=== PATIENT | male | born 1980 | race Caucasian/White ===

== ENCOUNTER 2019-09-24 15:52 | Observation (INO) ==
[2019-09-24 17:44] LABS: Hematocrit 42.5 % (37.5-50.1); Hemoglobin 14.2 g/dL (12.9-16.9); Mean Corpuscular HGB Conc 33.4 g/dL (31.6-35.5); Mean Corpuscular Hemoglobin 29.4 pg (28.0-33.3); Mean Platelet Volume 9.4 fL (9.4-12.4); Platelet Count 292 K/mcL (140-400); Red Blood Count 4.83 M/mcL (4.19-5.50); Red Cell Distribution Width 13.2 % (11.5-14.5); White Blood Count 10.7 K/mcL (4.3-11.1)
[2019-09-24 18:02] LABS: Alanine Aminotransferase 28 Units/L (7-52); Albumin 4.2 g/dL (3.5-5.7); Albumin/Globulin Ratio 1.6 (1.1-2.2); Alkaline Phosphatase 64 Units/L (34-104); Aspartate Amino Transferase 23 Units/L (13-39); BUN/Creatinine Ratio 24 (6-26); Bilirubin,Direct 0.1 mg/dL (0.0-0.2); Bilirubin,Indirect 0.4 mg/dL (0.0-1.0); Bilirubin,Total 0.5 mg/dL (0.3-1.0); Blood Urea Nitrogen 17 mg/dL (6-20); Calcium 9.4 mg/dL (8.6-10.3); Carbon Dioxide 28 mEq/L (23-29); Chloride 99 mEq/L (98-107); Globulin 2.7 g/dL (2.4-3.5); Glucose 105 mg/dL (70-105); Osmolality,Calculated 282 (280-300); Potassium 3.6 mEq/L (3.5-5.1); Sodium 135 mEq/L (136-145); Total Protein 6.9 g/dL (6.4-8.9); eGFR For African Americans > 60 (> 60); eGFR For Non-African Americans > 60 (> 60)
[2019-09-24] MEDS ORDERED: *HR* Labetalol 20 MG/4 ML SYRINGE IVP PRN (18:56)
[2019-09-24] MEDS ORDERED: Ondansetron 4 MG/2 ML VIAL IVP ONE (18:56)
[2019-09-24] MEDS ORDERED: Acetaminophen IV 1,000 MG/100 ML INFUS..BTL ONE (19:05)
[2019-09-24] MEDS ORDERED: Famotidine 20 MG/2 ML VIAL ONE (19:06)
[2019-09-24] MEDS ORDERED: CefOXitin 1,000 MG VIAL ONE (19:09)
[2019-09-24] MEDS ORDERED: *HR* Succinylcholine 200 MG/10 ML VIAL IVP ONE (19:20)
[2019-09-24] MEDS ORDERED: Lidocaine -MPF 2% 2 ML VIAL ONE (19:20)
[2019-09-24] MEDS ORDERED: *HR* Propofol 200 MG/20 ML VIAL IVP ONE (19:20)
[2019-09-24] MEDS ORDERED: Ondansetron 4 MG/2 ML VIAL ONE (19:20)
[2019-09-24] MEDS ORDERED: *HR* FentaNYL (PF) 100 MCG/2 ML VIAL ONE (19:20)
[2019-09-24] MEDS ORDERED: *HR* Rocuronium Bromide 50 MG/5 ML VIAL ONE (19:20)
[2019-09-24] MEDS ORDERED: *HR* Midazolam HCl 2 MG/2 ML VIAL ONE ×2 (19:20→19:53)
[2019-09-24] MEDS ORDERED: Dexamethasone 4 MG/ML VIAL ONE (19:22)
[2019-09-24] MEDS ORDERED: ceFAZolin 2,000 MG in 0.9 % Sodium Chloride 100 ML IVPB ONE (20:25)
[2019-09-24] MEDS ORDERED: *HR* PHENYLEPHRINE 1,000 MCG/10 ML SYRINGE IVP ONE (20:29)
[2019-09-24] MEDS ORDERED: EPHEDrine 50 MG/ML VIAL ONE (20:43)
[2019-09-24] MEDS ORDERED: Ondansetron 4 MG/2 ML VIAL IVP PRN (21:23)
[2019-09-24] MEDS ORDERED: *HR* Metoprolol 5 MG/5 ML VIAL IVP PRN (21:23)
[2019-09-24] MEDS ORDERED: *HR* HYDROMORPHONE 2 MG/ML VIAL ONE (21:30)
[2019-09-24] MEDS ORDERED: 0.9 % Sodium Chloride 1,000 ML IVC SCH (21:30)
[2019-09-24] MEDS: *HR* HYDROmorphone PF 0.5 MG/0.5 ML SYRINGE IVP PRN ×2 (21:39→21:54)
[2019-09-24] MEDS: *HR* OxyCODONE/APAP 5/325 TABLET PO PRN (23:53)
[2019-09-25] MEDS ORDERED: CeFAZolin Syr 3,000MG/30 ML 3,000 MG/30 ML SYRINGE IVPB SCH
[2019-09-25] MEDS ORDERED: Morphine Sulfate 2 MG/ML SYRINGE IVP PRN (02:54)
[2019-09-25] MEDS: ceFAZolin 3,000 MG in 0.9 % Sodium Chloride 100 ML IVP SCH ×2 (04:33→13:29)
[2019-09-25] MEDS: *HR* OxyCODONE/APAP 5/325 TABLET PO PRN (08:08)
[2019-09-25] MEDS: Ibuprofen 800 MG TABLET PO SCH ×2 (10:41→18:03)
[2019-09-25] MEDS: *HR* Heparin 5,000 UNIT/ML VIAL SQ SCH ×2 (13:29→21:13)
[2019-09-25] MEDS: Lisinopril-HCTZ 20-12.5mg TABLET PO SCH (21:13)
[2019-09-26] MEDS: Ibuprofen 800 MG TABLET PO SCH ×2 (00:12→10:10)
[2019-09-26 05:00] VITALS: BP 113/78
[2019-09-26] MEDS: *HR* Heparin 5,000 UNIT/ML VIAL SQ SCH (06:03)
[2019-09-26] MEDS: *HR* OxyCODONE/APAP 5/325 TABLET PO PRN (06:03)
[2019-09-26] MEDS ORDERED: polyethylene glycoL 3350 17 GM POWD.PACK PO SCH (09:00)
[2019-09-26] MEDS: Lisinopril-HCTZ 20-12.5mg TABLET PO SCH (10:10)
== END 2019-09-26 13:15 | disposition home or self-care (01) ==
LOC: EMEROOARM 15:52 → 3ANU 15:52
PROVIDERS: ADMIT Surgery; ATTEND Surgery

== ENCOUNTER 2019-09-27 00:30 | Inpatient (IN) ==
[2019-09-27] MEDS ORDERED: Ondansetron 4 MG/2 ML VIAL IVP ONE (00:33)
[2019-09-27] MEDS ORDERED: Isovue-370 500 ML BOTTLE IVP ONE (00:35)
[2019-09-27] MEDS ORDERED: Morphine Sulfate 2 MG/ML SYRINGE IVP STA (00:36)
[2019-09-27] MEDS ORDERED: 0.9 % Sodium Chloride 1,000 ML IVC ONE (00:41)
[2019-09-27 01:24] LABS: Basophils % 0.2 %; Eosinophils % 0.2 %; Hematocrit 38.8 % (37.5-50.1); Hemoglobin 13.5 g/dL (12.9-16.9); Immature Granulocytes % 0.3 % (0-4); Lymphocytes # 1.2 K/mcL (0.6-4.6); Lymphocytes % 10.9 %; Mean Corpuscular HGB Conc 34.8 g/dL (31.6-35.5); Mean Corpuscular Hemoglobin 30.3 pg (28.0-33.3); Mean Corpuscular Volume 87.2 fL (83.0-100.0); Mean Platelet Volume 9.2 fL (9.4-12.4); Monocytes # 0.9 K/mcL (0.0-1.3); Neutrophils # 8.8 K/mcL (1.6-8.9); Platelet Count 301 K/mcL (140-400); Red Blood Count 4.45 M/mcL (4.19-5.50); Red Cell Distribution Width 13.4 % (11.5-14.5); Segmented Neutrophils % 80.4 %; White Blood Count 10.9 K/mcL (4.3-11.1)
[2019-09-27 01:44] LABS: Alanine Aminotransferase 20 Units/L (7-52); Albumin/Globulin Ratio 1.4 (1.1-2.2); Alkaline Phosphatase 59 Units/L (34-104); Aspartate Amino Transferase 21 Units/L (13-39); BUN/Creatinine Ratio 25 (6-26); Bilirubin,Direct 0.1 mg/dL (0.0-0.2); Bilirubin,Indirect 0.6 mg/dL (0.0-1.0); Bilirubin,Total 0.7 mg/dL (0.3-1.0); Blood Urea Nitrogen 17 mg/dL (6-20); Calcium 8.9 mg/dL (8.6-10.3); Carbon Dioxide 25 mEq/L (23-29); Chloride 100 mEq/L (98-107); Globulin 2.9 g/dL (2.4-3.5); Glucose 134 mg/dL (70-105); Lipase 3 Units/L (11-82); Osmolality,Calculated 286 (280-300); Potassium 3.2 mEq/L (3.5-5.1); Sodium 136 mEq/L (136-145); Total Protein 6.9 g/dL (6.4-8.9); Troponin I < 0.03 ng/mL (< 0.04); eGFR For African Americans > 60 (> 60); eGFR For Non-African Americans > 60 (> 60)
[2019-09-27] MEDS ORDERED: Tetracaine/Benzocaine/Butamben 1 SPRAY AEROSOL MM ONE (02:11)
[2019-09-27] MEDS ORDERED: Tetracaine/Benzocaine/Butamben 1 SPRAY AEROSOL ONE (02:12)
[2019-09-27] MEDS ORDERED: 0.9 % Sodium Chloride 1,000 ML IVC SCH (04:15)
[2019-09-27] MEDS ORDERED: Metoclopramide 10 MG/2 ML VIAL IVP STA (04:20)
[2019-09-27] MEDS ORDERED: Metoclopramide 10 MG/2 ML VIAL IVP ONE (06:09)
[2019-09-27] MEDS ORDERED: Morphine Sulfate 2 MG/ML SYRINGE IVP ONE (06:10)
[2019-09-27] MEDS ORDERED: Ondansetron 4 MG/2 ML VIAL IVP PRN (07:26)
[2019-09-27] MEDS ORDERED: Naloxone 0.4 MG/ML INJ IVP PRN (07:26)
[2019-09-27] MEDS ORDERED: Ketorolac 15 MG/ML VIAL IVP PRN (07:36)
[2019-09-27] MEDS: Ringers Solution, Lactated 1,000 ML IVC SCH ×2 (09:15→17:06)
[2019-09-27] MEDS: Pantoprazole 40 MG VIAL IVP SCH (10:21)
[2019-09-27] MEDS: *HR* Heparin 5,000 UNIT/ML VIAL SQ SCH (17:00)
[2019-09-28] MEDS: *HR* Heparin 5,000 UNIT/ML VIAL SQ SCH (05:33)
[2019-09-28] MEDS: Pantoprazole 40 MG VIAL IVP SCH (07:50)
[2019-09-28 08:27] LABS: Basophils % 0.3 %; Eosinophils # 0.1 K/mcL (0.0-0.6); Eosinophils % 1.3 %; Hematocrit 38.2 % (37.5-50.1); Hemoglobin 12.5 g/dL (12.9-16.9); Immature Granulocytes % 0.3 % (0-4); Lymphocytes # 1.2 K/mcL (0.6-4.6); Lymphocytes % 20.5 %; Mean Corpuscular HGB Conc 32.7 g/dL (31.6-35.5); Mean Corpuscular Hemoglobin 29.2 pg (28.0-33.3); Mean Corpuscular Volume 89.3 fL (83.0-100.0); Mean Platelet Volume 9.3 fL (9.4-12.4); Monocytes # 0.7 K/mcL (0.0-1.3); Monocytes % 10.8 %; Platelet Count 278 K/mcL (140-400); Red Blood Count 4.28 M/mcL (4.19-5.50); Red Cell Distribution Width 13.2 % (11.5-14.5); Segmented Neutrophils % 66.8 %
[2019-09-28 08:45] LABS: BUN/Creatinine Ratio 25 (6-26); Blood Urea Nitrogen 18 mg/dL (6-20); Carbon Dioxide 25 mEq/L (23-29); Chloride 103 mEq/L (98-107); Glucose 95 mg/dL (70-105); Magnesium 2.1 mg/dL (1.6-2.6); Osmolality,Calculated 284 (280-300); Potassium 3.5 mEq/L (3.5-5.1); Sodium 136 mEq/L (136-145); eGFR For African Americans > 60 (> 60); eGFR For Non-African Americans > 60 (> 60)
[2019-09-28] MEDS ORDERED: Lisinopril-HCTZ 20-12.5mg TABLET PO SCH (09:00)
[2019-09-28 10:17] VITALS: BP 108/70
== END 2019-09-28 13:02 | disposition home or self-care (01) | DRG 392 ==
LOC: EMEROOARM 00:30 → 3ANU 00:30 → SUATTDRO 11:30
PROVIDERS: ADMIT Family Medicine; ATTEND Internal Medicine

== ENCOUNTER 2020-03-11 04:40 | Inpatient (IN) ==
[2020-03-11] MEDS ORDERED: Ketorolac 15 MG/ML VIAL IVP ONE (05:01)
[2020-03-11] MEDS ORDERED: 0.9 % Sodium Chloride 1,000 ML IVC ONE (05:01)
[2020-03-11 05:37] LABS: Basophils # 0.1 K/mcL (0.0-0.2); Basophils % 0.4 %; Eosinophils # 0.9 K/mcL (0.0-0.6); Eosinophils % 7.8 %; Hematocrit 39.1 % (37.5-50.1); Hemoglobin 12.8 g/dL (12.9-16.9); Immature Granulocytes % 0.4 % (0-4); Lymphocytes # 1.8 K/mcL (0.6-4.6); Lymphocytes % 15.8 %; Mean Corpuscular HGB Conc 32.7 g/dL (31.6-35.5); Mean Corpuscular Hemoglobin 28.7 pg (28.0-33.3); Mean Corpuscular Volume 87.7 fL (83.0-100.0); Mean Platelet Volume 9.7 fL (9.4-12.4); Monocytes % 8.5 %; Neutrophils # 7.6 K/mcL (1.6-8.9); Platelet Count 281 K/mcL (140-400); Red Blood Count 4.46 M/mcL (4.19-5.50); Red Cell Distribution Width 14.9 % (11.5-14.5); Segmented Neutrophils % 67.1 %; White Blood Count 11.3 K/mcL (4.3-11.1)
[2020-03-11 06:15] LABS: BUN/Creatinine Ratio 25 (6-26); Blood Urea Nitrogen 21 mg/dL (6-20); Calcium 8.8 mg/dL (8.6-10.3); Carbon Dioxide 27 mEq/L (23-29); Chloride 101 mEq/L (98-107); Glucose 130 mg/dL (70-105); Osmolality,Calculated 287 (280-300); Potassium 3.4 mEq/L (3.5-5.1); Sodium 136 mEq/L (136-145); Troponin I 4.44 ng/mL (< 0.04); eGFR For African Americans > 60 (> 60); eGFR For Non-African Americans > 60 (> 60)
[2020-03-11] MEDS ORDERED: *HR* Heparin 5,000 UNIT/ML VIAL IVP ONE (06:43)
[2020-03-11] MEDS ORDERED: *HR* Heparin 5,000 UNIT/ML VIAL IVP PRN ×2 (06:43)
[2020-03-11] MEDS ORDERED: Heparin 25,000UNIT/250ML 1/2NS 25,000 UNIT/250 ML IV.SOLN IVC SCH (06:45)
[2020-03-11] MEDS ORDERED: Perflutren Lipid Microsphere 1.3 ML in 0.9 % Sodium Chloride 8.7 ML IVP PRN (07:18)
[2020-03-11] MEDS ORDERED: Ondansetron 4 MG/2 ML VIAL IVP PRN (07:19)
[2020-03-11] MEDS ORDERED: Acetaminophen 325 MG TABLET PO PRN (07:19)
[2020-03-11 07:31] LABS: Hematocrit 38.8 % (37.5-50.1); Hemoglobin 12.6 g/dL (12.9-16.9); Mean Corpuscular HGB Conc 32.5 g/dL (31.6-35.5); Mean Corpuscular Hemoglobin 27.8 pg (28.0-33.3); Mean Corpuscular Volume 85.7 fL (83.0-100.0); Mean Platelet Volume 9.6 fL (9.4-12.4); Platelet Count 253 K/mcL (140-400); Red Blood Count 4.53 M/mcL (4.19-5.50); Red Cell Distribution Width 14.9 % (11.5-14.5); White Blood Count 12.4 K/mcL (4.3-11.1)
[2020-03-11 07:38] LABS: Heparin anti-factor XA UFH < 0.04 IU/mL (0.30-0.70)
[2020-03-11 07:39] LABS: INR 1.2; Prothrombin Time 13.7 Seconds (9.4-12.1)
[2020-03-11] MEDS ORDERED: Aspirin 325 MG TABLET PO ONE (07:48)
[2020-03-11 08:43] LABS: Estimated Average Glucose 123 mg/dl
[2020-03-11] MEDS ORDERED: ISOVUE-370 200 ML INFUS..BTL ONE (12:28)
[2020-03-11] MEDS ORDERED: Heparin 1,000 UNITS/500 mL 500 ML ONE (12:28)
[2020-03-11] MEDS ORDERED: 0.9 % Sodium Chloride 1,000 ML ONE ×2 (12:28→12:52)
[2020-03-11] MEDS ORDERED: Nitroglycerin 1,000 MCG/10 ML VIAL IV ONE (12:28)
[2020-03-11] MEDS ORDERED: *HR* Heparin 10,000 UNIT/10 ML VIAL ONE (12:28)
[2020-03-11] MEDS ORDERED: *HR* FentaNYL (PF) 100 MCG/2 ML VIAL ONE (12:45)
[2020-03-11] MEDS ORDERED: *HR* Midazolam HCl 2 MG/2 ML VIAL ONE (12:45)
[2020-03-11] MEDS: Ibuprofen 400 MG TABLET PO PRN (14:39)
[2020-03-11] MEDS ORDERED: Lisinopril-HCTZ 20-12.5mg TABLET PO SCH (21:00)
[2020-03-11 22:17] LABS: Adenovirus Not Detected (Not Detect); Bordetella Pertussis Not Detected (Not Detect); Chlamydophila pneumoniae Not Detected (Not Detect); Coronavirus 229E Not Detected (Not Detect); Coronavirus HKU1 Not Detected (Not Detect); Coronavirus NL63 Not Detected (Not Detect); Coronavirus OC43 Not Detected (Not Detect); Human Metapneumovirus Not Detected (Not Detect); Human Rhinovirus/Enterovirus Not Detected (Not Detect); Influenza A Subtype 2009 H1 Not Detected (Not Detect); Influenza B Not Detected (Not Detect); Mycoplasma pneumoniae Not Detected (Not Detect); Parainfluenza Virus 1 Not Detected (Not Detect); Parainfluenza Virus 2 Not Detected (Not Detect); Parainfluenza Virus 3 Not Detected (Not Detect); Parainfluenza Virus 4 Not Detected (Not Detect); Respiratory Syncytial Virus Not Detected (Not Detect)
[2020-03-12] MEDS ORDERED: Isovue-370 500 ML BOTTLE IVP ONE ×2 (05:00→07:00)
[2020-03-12] MEDS: Ibuprofen 400 MG TABLET PO PRN (05:05)
[2020-03-12 05:23] LABS: Hematocrit 36.3 % (37.5-50.1); Hemoglobin 11.5 g/dL (12.9-16.9); Mean Corpuscular HGB Conc 31.7 g/dL (31.6-35.5); Mean Corpuscular Hemoglobin 27.5 pg (28.0-33.3); Mean Corpuscular Volume 86.8 fL (83.0-100.0); Mean Platelet Volume 9.3 fL (9.4-12.4); Platelet Count 267 K/mcL (140-400); Red Blood Count 4.18 M/mcL (4.19-5.50); White Blood Count 8.9 K/mcL (4.3-11.1)
[2020-03-12 05:54] LABS: BUN/Creatinine Ratio 24 (6-26); Blood Urea Nitrogen 15 mg/dL (6-20); Carbon Dioxide 22 mEq/L (23-29); Chloride 101 mEq/L (98-107); Chol/HDL Ratio 5.1 (0-4.9); Cholesterol 132 mg/dL (< 200); Glucose 120 mg/dL (70-105); HDL Cholesterol 26 mg/dL (40-59); LDL Cholesterol,Calculated 81 mg/dL (< 100); Osmolality,Calculated 290 (280-300); Potassium 3.6 mEq/L (3.5-5.1); Sodium 139 mEq/L (136-145); Triglycerides 126 mg/dL (< 150); Troponin I 2.31 ng/mL (< 0.04); eGFR For African Americans > 60 (> 60); eGFR For Non-African Americans > 60 (> 60)
[2020-03-12] MEDS ORDERED: Aspirin Enteric Coated 81 MG Tablet PO SCH (09:00)
[2020-03-12] MEDS ORDERED: Metoprolol XL (24 HR) Succ 25 MG TAB.ER.24H PO SCH (09:00)
[2020-03-12 10:55] LABS: C-Reactive Protein 144 mg/L (Less than 10)
[2020-03-12 11:21] VITALS: BP 103/51
== END 2020-03-12 14:15 | disposition home or self-care (01) | DRG 192 ==
LOC: EMEROOARM 04:40 → 2NNU 04:40
PROVIDERS: ADMIT Internal Medicine; ATTEND Internal Medicine